=== PATIENT | female | born 1985 | race Caucasian/White ===

== ENCOUNTER 2018-08-04 07:06 | Inpatient (IN) | payer OTHER ==
[~2018-08-04] VITALS: Ht 165.1 cm; Wt 100.7 kg
[2018-08-04] MEDS ORDERED: RINGERS SOLUTION,LACTATED 1,000 ML IV ONE (07:10)
[2018-08-04] MEDS ORDERED: OXYTOCIN 30 UNITS/LACT RINGERS 500 ML IV ONE (07:10)
[2018-08-04] MEDS ORDERED: LIDOCAINE/PF 1% 30 ML VIAL INJ PRN (07:15)
[2018-08-04] MEDS ORDERED: CITRIC ACID/SODIUM CITRATE 30 ML SOLUTION UDCUP PO PRN (07:15)
[2018-08-04] MEDS ORDERED: METOCLOPRAMIDE HCL 5 MG/ML 2 ML VIAL IVP PRN (07:15)
[2018-08-04 07:44] VITALS: BP 122/75
[2018-08-04 07:50] LABS: BASOPHILS % (AUTO) 0.5 % (0.0-2.0); EOSINOPHILS % (AUTO) 2.1 % (1.0-6.0); HEMATOCRIT 39.3 % (36-46); HEMOGLOBIN 13.4 g/dL (12.0-16.0); LYMPHOCYTES # (AUTO) 1.7 K/uL (1.0-4.8); LYMPHOCYTES % (AUTO) 12.8 % (22.0-44.0); MEAN CORPUSCULAR HGB CONC 34.1 G/dL (31.0-37.0); MEAN CORPUSCULAR VOLUME 88 fL (80-100); MONOCYTES # (AUTO) 1.1 K/uL (0.1-1.0); MONOCYTES % (AUTO) 8.4 % (2.0-9.0); NEUTROPHILS # (AUTO) 10.3 K/uL (1.8-7.7); NEUTROPHILS % (AUTO) 76.2 % (40.0-70.0); PLATELET COUNT (AUTO)-OB 351 K/uL (150-450); RED BLOOD CELL COUNT(AUTO) 4.47 MIL/uL (4.00-5.20); RED CELL DISTRIBUTION WIDTH 13.7 % (11.5-14.5)
[2018-08-04] MEDS ORDERED: RINGERS SOLUTION,LACTATED 1,000 ML IV SCH (07:53)
[2018-08-04] MEDS: MISOPROSTOL 25 MCG TABLET PO SCH ×2 (08:21→12:27)
[2018-08-04] MEDS: RINGERS SOLUTION,LACTATED 1,000 ML IV SCH ×2 (08:42→12:23)
[2018-08-04] MEDS ORDERED: PNV11TAB PO (08:56)
[2018-08-04] MEDS ORDERED: OXYTOCIN 30 UNITS/LACT RINGERS 500 ML IV PRN (16:33)
[2018-08-04] MEDS ORDERED: ROPIVACAINE HCL/PF 0.2% 100 ML ED ONE (19:31)
[2018-08-04] MEDS ORDERED: ROPIVACAINE HCL/PF 0.2% 100 ML ED PRN (19:52)
[2018-08-04] MEDS ORDERED: DiphenhydrAMINE HCL 50 MG/ML VIAL IVP PRN (20:00)
[2018-08-04] MEDS ORDERED: ONDANSETRON HCL 4 MG/2 ML VIAL IVP PRN (20:00)
[2018-08-05] MEDS ORDERED: BENZOCAINE 20%/MENTHOL 56 GM SPRAY CANISTER TP PRN (01:30)
[2018-08-05] MEDS ORDERED: LANOLIN 7 GM OINTMENT TP PRN (01:30)
[2018-08-05] MEDS ORDERED: GLYCERIN/WITCH HAZEL LEAF 40 PADS JAR TP PRN (01:30)
[2018-08-05] MEDS ORDERED: OxyCODONE HCL/ACETAMINOPHEN 5-325 MG TABLET PO PRN ×2 (01:30)
[2018-08-05] MEDS ORDERED: OXYTOCIN 20 UNITS/LACT RINGERS 1,000 ML IV ONE (02:15)
[2018-08-05] MEDS: IBUPROFEN 800 MG TABLET PO PRN (06:30)
[2018-08-05] MEDS: MAGNESIUM HYDROXIDE SUSPENSION 30 ML UDCUP PO PRN (10:24)
[2018-08-05] MEDS ORDERED: MEASLES/MUMPS/RUBELLA VACCINE, LIVE 0.5 ML/VIAL SQ ONE (14:45)
[2018-08-06 05:23] LABS: BASOPHILS % (AUTO) 0.5 % (0.0-2.0); EOSINOPHILS % (AUTO) 2.5 % (1.0-6.0); HEMATOCRIT 34.6 % (36-46); HEMOGLOBIN 11.9 g/dL (12.0-16.0); LYMPHOCYTES # (AUTO) 2.1 K/uL (1.0-4.8); LYMPHOCYTES % (AUTO) 14.9 % (22.0-44.0); MEAN CORPUSCULAR HEMOGLOBIN 30.3 pg (26.0-34.0); MEAN CORPUSCULAR HGB CONC 34.3 G/dL (31.0-37.0); MEAN CORPUSCULAR VOLUME 89 fL (80-100); MONOCYTES # (AUTO) 1.2 K/uL (0.1-1.0); MONOCYTES % (AUTO) 8.5 % (2.0-9.0); NEUTROPHILS # (AUTO) 10.3 K/uL (1.8-7.7); NEUTROPHILS % (AUTO) 73.6 % (40.0-70.0); PLATELET COUNT (AUTO)-OB 313 K/uL (150-450); RED BLOOD CELL COUNT(AUTO) 3.91 MIL/uL (4.00-5.20); RED CELL DISTRIBUTION WIDTH 14.2 % (11.5-14.5)
[2018-08-06] MEDS: MAGNESIUM HYDROXIDE SUSPENSION 30 ML UDCUP PO PRN (09:31)
[2018-08-06] MEDS: IBUPROFEN 800 MG TABLET PO PRN (09:32)
[2018-08-06] MEDS ORDERED: IBUP-2071 PO (10:07)
[2018-08-06] MEDS ORDERED: FERR-89 PO (10:08)
[2018-08-06] MEDS ORDERED: DSS100 PO (10:09)
== END 2018-08-06 11:45 | disposition home or self-care (01) | DRG 807 ==
LOC: OBSVTOIN 07:06 → 4S 07:06
PROVIDERS: ADMIT Obstetrics & Gynecology; ATTEND Obstetrics & Gynecology
PROC: 10E0XZZ Delivery of Products of Conception, External Approach (ICD-10-PCS; principal; 2018-08-05)
PROC: 0KQM0ZZ Repair Perineum Muscle, Open Approach (ICD-10-PCS; 2018-08-05)
PROC: 3E0R3BZ Introduction of Anesthetic Agent into Spinal Canal, Percutaneous Approach (ICD-10-PCS; 2018-08-05)
PROC: 00HU33Z Insertion of Infusion Device into Spinal Canal, Percutaneous Approach (ICD-10-PCS; 2018-08-05)
DX: O42.92 Full-term premature rupture of membranes, unspecified as to length of time between rupture and onset of labor (principal); Z37.0 Single live birth; O70.1 Second degree perineal laceration during delivery; Z3A.40 40 weeks gestation of pregnancy; Z28.21 Immunization not carried out because of patient refusal
CPT/HCPCS: 86850; 86900; 86901; 90686; 99285; J2590; J2795; J7120

== ENCOUNTER 2021-02-04 13:23 | Observation (INO) | payer OTHER ==
[~2021-02-04] VITALS: Ht 165.1 cm; Wt 101.6 kg
[~2021-02-04 13:23] MED LIST: DSS100 PO; FERR-89 PO; IBUP-2071 PO; PNV11TAB PO
[2021-02-25 10:57] VITALS: BP 127/72
[2021-02-25 12:03] LABS: GLUCOMETER DEV NAME(LOC) 4S.; GLUCOSE,POINT OF CARE 95 MG/DL (70-110)
== END 2021-02-25 12:55 | disposition home or self-care (01) ==
LOC: 4S 02-25 09:55
PROVIDERS: ADMIT Obstetrics & Gynecology; ATTEND Obstetrics & Gynecology
DX: O24.419 Gestational diabetes mellitus in pregnancy, unspecified control (principal); Z3A.37 37 weeks gestation of pregnancy
CPT/HCPCS: 59025; 76805; 82962; 83036; 99219

== ENCOUNTER 2021-03-05 09:05 | Observation (INO) | payer OTHER | END 2021-03-05 09:15 | disposition home or self-care (01) | LOC: 4S 09:05 | PROVIDERS: ADMIT Obstetrics & Gynecology; ATTEND Obstetrics & Gynecology | DX: O09.523 Supervision of elderly multigravida, third trimester (principal); Z3A.38 38 weeks gestation of pregnancy | CPT/HCPCS: 99219 ==

== ENCOUNTER 2021-03-06 07:09 | Inpatient (IN) | payer OTHER ==
[~2021-03-06] VITALS: Ht 165.1 cm; Wt 97.5 kg
[2021-03-06] MEDS ORDERED: METHYLERGONOVINE MALEATE 0.2 MG/ML VIAL IM PRN (07:30)
[2021-03-06] MEDS ORDERED: RINGERS SOLUTION,LACTATED 1,000 ML IV PRN (07:30)
[2021-03-06] MEDS ORDERED: METOCLOPRAMIDE HCL 5 MG/ML 2 ML VIAL IVP PRN (07:30)
[2021-03-06] MEDS ORDERED: OXYTOCIN 30 UNITS/LACT RINGERS 500 ML IV ONE (07:30)
[2021-03-06] MEDS ORDERED: CITRIC ACID/SODIUM CITRATE 30 ML SOLUTION UDCUP PO PRN (07:30)
[2021-03-06] MEDS ORDERED: MINERAL OIL 30 ML UDCUP VG ONE (07:30)
[2021-03-06] MEDS ORDERED: OXYGEN THERAPY IH SCH (08:00)
[2021-03-06] MEDS ORDERED: DINOPROSTONE 10 MG VAGINAL SUPPOSITORY VG ONE (08:30)
[2021-03-06 08:41] LABS: COVID AG,FIA SOURCE NASOPHARYNGEAL
[2021-03-06 08:45] VITALS: BP 116/80
[2021-03-06 08:45] LABS: BASOPHILS % (AUTO) 0.4 % (0.0-2.0); EOSINOPHILS % (AUTO) 2.5 % (1.0-6.0); HEMATOCRIT 37.4 % (36-46); HEMOGLOBIN 12.8 g/dL (12.0-16.0); LYMPHOCYTES # (AUTO) 1.2 K/uL (1.0-4.8); LYMPHOCYTES % (AUTO) 13.4 % (22.0-44.0); MEAN CORPUSCULAR HEMOGLOBIN 31.5 pg (26.0-34.0); MEAN CORPUSCULAR HGB CONC 34.1 G/dL (31.0-37.0); MEAN CORPUSCULAR VOLUME 92 fL (80-100); MONOCYTES % (AUTO) 10.5 % (2.0-9.0); NEUTROPHILS # (AUTO) 6.8 K/uL (1.8-7.7); NEUTROPHILS % (AUTO) 73.2 % (40.0-70.0); PLATELET COUNT (AUTO) 281 K/uL (150-450); RED BLOOD CELL COUNT(AUTO) 4.06 MIL/uL (4.00-5.20); RED CELL DISTRIBUTION WIDTH 14.6 % (11.5-14.5)
[2021-03-06] MEDS: RINGERS SOLUTION,LACTATED 1,000 ML IV SCH ×3 (09:08→21:40)
[2021-03-06 10:40] LABS: GLUCOMETER DEV NAME(LOC) 4S.; GLUCOSE,POINT OF CARE 136 MG/DL (70-110)
[2021-03-06 13:24] LABS: GLUCOMETER DEV NAME(LOC) 4S.; GLUCOSE,POINT OF CARE 147 MG/DL (70-110)
[2021-03-06] MEDS ORDERED: OXYTOCIN 30 UNITS/LACT RINGERS 500 ML IV PRN (21:30)
[2021-03-06] MEDS ORDERED: ROPIVACAINE HCL/PF 0.2% 100 ML ED ONE (22:08)
[2021-03-06] MEDS ORDERED: NALBUPHINE HCL 10 MG/ML VIAL IVP PRN (22:30)
[2021-03-06] MEDS ORDERED: DiphenhydrAMINE HCL 50 MG/ML VIAL IVP PRN (22:30)
[2021-03-06] MEDS ORDERED: ROPIVACAINE HCL/PF 0.2% 100 ML ED PRN (22:30)
[2021-03-06] MEDS ORDERED: ONDANSETRON HCL 4 MG/2 ML VIAL IVP PRN (22:30)
[2021-03-07 01:01] LABS: GLUCOMETER DEV NAME(LOC) 4S.; GLUCOSE,POINT OF CARE 96 MG/DL (70-110)
[2021-03-07] MEDS: RINGERS SOLUTION,LACTATED 1,000 ML IV SCH (02:08)
[2021-03-07] MEDS ORDERED: MINERAL OIL 30 ML UDCUP VG ONE (06:45)
[2021-03-07] MEDS ORDERED: OxyCODONE HCL/ACETAMINOPHEN 5-325 MG TABLET PO PRN ×2 (07:00)
[2021-03-07] MEDS ORDERED: OXYTOCIN 30 UNITS/LACT RINGERS 500 ML IV ONE (07:00)
[2021-03-07] MEDS ORDERED: LIDOCAINE/PF 1% 30 ML VIAL SQ PRN (07:00)
[2021-03-07] MEDS ORDERED: GLYCERIN/WITCH HAZEL LEAF 40 PADS JAR TP PRN (07:00)
[2021-03-07] MEDS ORDERED: BENZOCAINE 20%/MENTHOL 56 GM SPRAY CANISTER TP PRN (07:00)
[2021-03-07] MEDS ORDERED: IBUPROFEN 800 MG TABLET PO PRN (07:00)
[2021-03-07] MEDS ORDERED: LANOLIN 7 GM OINTMENT TP PRN (07:00)
[2021-03-07] MEDS ORDERED: METHYLERGONOVINE MALEATE 0.2 MG/ML VIAL IM PRN (07:30)
[2021-03-07] MEDS: MAGNESIUM HYDROXIDE SUSPENSION 30 ML UDCUP PO PRN (13:45)
[2021-03-08 06:25] LABS: BASOPHILS % (AUTO) 0.5 % (0.0-2.0); EOSINOPHILS % (AUTO) 2.5 % (1.0-6.0); HEMATOCRIT 36.7 % (36-46); HEMOGLOBIN 12.2 g/dL (12.0-16.0); LYMPHOCYTES # (AUTO) 1.9 K/uL (1.0-4.8); LYMPHOCYTES % (AUTO) 16.7 % (22.0-44.0); MEAN CORPUSCULAR HEMOGLOBIN 30.9 pg (26.0-34.0); MEAN CORPUSCULAR HGB CONC 33.4 G/dL (31.0-37.0); MEAN CORPUSCULAR VOLUME 92 fL (80-100); MONOCYTES # (AUTO) 1.2 K/uL (0.1-1.0); MONOCYTES % (AUTO) 10.2 % (2.0-9.0); NEUTROPHILS # (AUTO) 8.1 K/uL (1.8-7.7); NEUTROPHILS % (AUTO) 70.1 % (40.0-70.0); PLATELET COUNT (AUTO)-OB 240 K/uL (150-450); RED BLOOD CELL COUNT(AUTO) 3.97 MIL/uL (4.00-5.20); RED CELL DISTRIBUTION WIDTH 14.6 % (11.5-14.5)
[2021-03-08] MEDS: MAGNESIUM HYDROXIDE SUSPENSION 30 ML UDCUP PO PRN (09:54)
== END 2021-03-08 11:10 | disposition home or self-care (01) | DRG 807 ==
LOC: 4S 07:09 → PREOBSVTOIN 03-16 07:53
PROVIDERS: ADMIT Obstetrics & Gynecology; ATTEND Obstetrics & Gynecology
PROC: 10E0XZZ Delivery of Products of Conception, External Approach (ICD-10-PCS; principal; 2021-03-07)
PROC: 10907ZC Drainage of Amniotic Fluid, Therapeutic from Products of Conception, Via Natural or Artificial Opening (ICD-10-PCS; 2021-03-07)
PROC: 3E0R3BZ Introduction of Anesthetic Agent into Spinal Canal, Percutaneous Approach (ICD-10-PCS; 2021-03-07)
PROC: 00HU33Z Insertion of Infusion Device into Spinal Canal, Percutaneous Approach (ICD-10-PCS; 2021-03-07)
DX: O24.420 Gestational diabetes mellitus in childbirth, diet controlled (principal); Z37.0 Single live birth; Z20.822 Contact with and (suspected) exposure to COVID-19; Z3A.38 38 weeks gestation of pregnancy
CPT/HCPCS: 82947; 82962; 85025; 86850; 86900; 86901; 87426; 99219; J2210; J2590; J2795; J7120